=== PATIENT | male | born 1970 | race Caucasian/White ===

== ENCOUNTER 2016-10-05 09:15 | Inpatient (IN) ==
[2016-10-05] MEDS ORDERED: Ondansetron ODT 4 MG TAB.RAPDIS SL ONE (09:38)
--- NOTE | 2016-10-05 09:39 | Emergency Department Note ---
Disposition Clinical Impression: Chronic schizophrenia Fever Qualifiers: Fever type: unspecified Qualified Code(s): R50.9 - Fever, unspecified Leukocytosis, unspecified Qualifiers: Leukocytosis type: unspecified Qualified Code(s): D72.829 - Elevated white blood cell count, unspecified Disposition: Still a Patient Referrals: NO,PCP [Non-Partnered Physician] - Forms: ED Satisfaction Letter Time of Disposition: 11:24 Psych HPI - General Chief Complaint: ED Psychiatric Symptoms Stated Complaint: panic attack Time Seen by Provider: 10/05/16 09:21 Source: patient, EMS Mode of arrival: EMS Limitations: altered mental status Nursing Notes Reviewed: Yes Vital Signs Reviewed: Yes - History of Present Illness HPI Narrative: patient is brought to the ED via EMS from home in an agitated state. He has a history of schizophrenia and for the last 4 days has not been taking his medications as he has been unable to keep anything down. He is having rapid speech, flights of ideas, minimally cooperative at this time. His states he has not been recognizing her for the last few days off and on. He voiced suicidal ideation at home, but now denying. He is constantly spitting into the trash can, but then demanding ice chips , which his continues to provide even though we have requested he not be given anything by mouth. He states "if you don't give me ice chips I'll have a psychotic break on you". Attempts to discuss the reason behind NPO are not well received, and he is not willing to cooperate with these plans. Will proceed with psych work up. Pt complaint: altered mental status, anxiety If medical clearance, reason: psychiatric condition Onset (ago): day(s) (4) Duration: constant, changing over time, getting worse History of similar episodes: Yes Improves with: none Worsens with: none Alleged intoxication: No Associated Psychiatric Symptoms: suicidal ideation Associated symptoms: Reports: nausea, vomiting Traumatic symptoms: denies traumatic injury Treatments prior to arrival: none Self harm or harm to others: denies thoughts of harming self/others, denies having a plan - Related Data Previous Rx's Medication Instructions Recorded Lactobacillus [Culturelle] 1 each PO DAILY #10 cap.sprink 12/21/14 Potassium Chloride 20 meq PO BID #60 tab.er.prt 12/21/14 TraZODone 50 mg PO HS PRN #30 tablet 12/21/14 Ziprasidone [Geodon] 20 mg PO BID #60 capsule 12/21/14 metroNIDAZOLE [Flagyl] 500 mg PO TID #14 tablet 12/21/14 Allergies Allergy/AdvReac Type Severity Reaction Status Date / Time Penicillins Allergy Severe Difficulty Verified 12/17/14 08:00 Breathing All systems ED: reviewed and negative except as stated. Constitutional: Denies: fever, chills, weakness, weight change Eyes: Denies: eye pain, eye discharge, vision change ENT ED: Denies: ear pain, throat pain, dental pain, hearing loss, epistaxis, congestion, dysphagia Cardiovascular: Denies: chest pain, palpitations, dyspnea on exertion, edema, syncope Gastrointestinal: Reports: abdominal pain, nausea, vomiting Genitourinary: Denies: urgency, dysuria, frequency, hematuria Musculoskeletal: Denies: back pain, neck pain, arthralgia, myalgia Integumentary: Denies: rash, abrasion, lesions Neurological: Denies: headache, weakness, numbness, paresthesias, confusion, abnormal gait, vertigo Psychiatric: Denies: anxiety, depression, suicidal thoughts, homicidal thoughts , auditory hallucinations, visual hallucinations Past Medical History - Past Medical History Attestation: Yes The following information was validated with the patient. Source: patient, obtained from family, nursing notes reviewed Medical history: Reports: non-contributory Surgical history: Reports: non-contributory, other Psychiatric history: Reports: anxiety, bipolar, depression, schizophrenia - Social History Smoking Status: Never smoker Smokeless Tobacco Status: No Alcohol use: Reports: none Drug use: Reports: none, marijuana Physical Exam - General Limitations: altered mental status General appearance: anxious - Head Head exam: atraumatic, normocephalic, normal inspection - Eye Eye exam: Present: normal appearance, PERRL, EOMI - ENT ENT exam: normal exam, normal oropharynx, mucous membranes moist - Neck Neck exam: Present: normal inspection, full ROM, trachea midline - Chest Chest inspection: Present: normal inspection, symmetric chest wall rise - Respiratory Respiratory exam: Present: normal lung sounds bilaterally, wheezes (expiratory occasional wheezing ) - Cardiovascular Cardiovascular exam: Present: regular rate, normal rhythm, normal heart sounds - Abdominal Exam Abdominal exam: Present: soft, Non-Tender, normal bowel sounds. Absent: tenderness, distention, guarding, rebound, rigidity - Extremities Exam Extremities exam: Present: normal inspection, full ROM. Absent: tenderness, pedal edema - Back Exam Back exam: Present: normal inspection, full ROM. Absent: tenderness - Neurological Exam Neurological exam: Present: alert, oriented X3 - Psychiatric Psychiatric exam: Present: agitated, anxious, suicidal ideation - Skin Skin exam: Present: warm, dry, intact, normal color Course Vital Signs Temperature 98.6 F 10/05/16 09:17 Pulse Rate 102 10/05/16 09:17 Respiratory Rate 16 10/05/16 09:17 Blood Pressure 189/101 10/05/16 09:17 O2 Sat by Pulse Oximetry 93 10/05/16 09:17 Temperature 98.6 F 10/05/16 09:17 Pulse Rate 102 10/05/16 09:17 Respiratory Rate 16 10/05/16 09:17 Blood Pressure 189/101 10/05/16 09:17 O2 Sat by Pulse Oximetry 93 10/05/16 09:17 Oxygen Delivery Oxygen Delivery Room Air Psych - Lab Data Result diagrams: 10/05/16 10:00 10/05/16 10:00 Lab Results 10/05/16 10/05/16 10/05/16 Range/Units 09:52 10:00 10:00 WBC 30.1 H* (4.3-11.1) K/mcL RBC 5.78 H (4.19-5.50) M/mcL Hgb 17.0 H (12.9-16.9) g/dL Hct 48.0 (37.5-50.1) % MCV 83.0 (83.0-100.0) fL MCH 29.4 (28.0-33.3) pg MCHC 35.4 (31.6-35.5) g/dL RDW 14.1 (11.5-14.5) % Plt Count 420 H (140-400) K/mcL MPV 9.0 L (9.4-12.4) fL Immature Gran % 0.6 (0-4) % Seg Neutrophils % 87.2 % Lymphocytes % 6.0 % Monocytes % 6.0 % Eosinophils % 0.0 % Basophils % 0.2 % Neutrophils # 26.3 H (1.6-8.9) K/mcL Lymphocytes # 1.8 (0.6-4.6) K/mcL Monocytes # 1.8 H (0.0-1.3) K/mcL Eosinophils # 0.0 (0.0-0.6) K/mcL Basophils # 0.1 (0.0-0.2) K/mcL Platelet Estimate Increased H (Normal) Sodium 135 L (136-145) mEq/L Potassium 3.0 L (3.5-4.5) mEq/L Chloride 100 (98-109) mEq/L Carbon Dioxide 15 L (19-29) mEq/L BUN 22 (8-26) mg/dL Creatinine 1.47 H (0.72-1.25) mg/dL Est GFR ( Amer) > 60 (> 60) Est GFR (Non-Af Amer) 52 L (> 60) BUN/Creatinine Ratio 15 (6-26) Glucose 109 H (70-99) mg/dL Calculated Osmolality 284 (280-300) Calcium 9.9 (8.6-10.8) mg/dL Total Bilirubin 0.9 (0.2-1.2) mg/dL Direct Bilirubin 0.4 (0.0-0.5) mg/dL Indirect Bilirubin 0.5 (0.0-1.2) mg/dL AST 37 H (5-34) Units/L ALT 14 (0-55) Units/L Alkaline Phosphatase 67 (38-126) Units/L Serum Total Protein 8.4 H (6.0-8.3) g/dL Albumin 4.0 (3.5-5.0) g/dL Globulin 4.4 H (2.4-3.5) g/dL Albumin/Globulin Ratio 0.9 L (1.1-2.2) TSH 1.298 (0.350-4.840) mcIU/mL Urine Color Dark Yellow (Yellow) Urine Clarity Hazy (Clear) Urine pH 6.0 (5.0-8.0) pH Units Ur Specific [place] > 1.030 H (1.010-1.025) Urine Protein >=300 H (Neg-Trace) mg/dL Urine Glucose (UA) Normal (Normal) mg/dL Urine Ketones 80 H (Negative) mg/dL Urine Blood Large H (Negative) Urine Nitrite Negative (Negative) Urine Bilirubin Moderate H (Negative) Urine Urobilinogen Normal (Normal) mg/dL Ur Leukocyte Esterase Negative (Negative) Urine Microscopic RBC 5-15 H (0-3) per hpf Urine Microscopic WBC 5-15 H (0-3) per hpf Ur Squamous Epith Cells Many H (None-Few) per lpf Ur Transition Epith Cell Few (None-Few) per hpf Ur Renal Epithelial Cell Few (None-Few) per hpf Urine Bacteria Moderate H (None-Few) per hpf Hyaline Casts Few (None-Few) per lpf Granular Casts Few H (None Seen) per lpf Other Casts See Below A Urine Mucus Few (Few) Salicylates < 5.0 L (15-30) mg/dL Acetaminophen < 1.0 L (10-30) mcg/mL Ethyl Alcohol < 10 (0-10) mg/dL Psychiatric Medical Clearance - Medical Clearance Checklist Medical History: No Social History Section defined Current Vitals: Last Vital Signs Temp 98.6 F 10/05/16 09:17 Pulse 102 10/05/16 09:17 Resp 16 10/05/16 09:17 BP 189/101 10/05/16 09:17 Pulse Ox 93 10/05/16 09:17 Psychiatric Lab Panel: Drug Levels and Toxicity 10/05/16 10:00 Acetaminophen < 1.0 L Ethyl Alcohol < 10 Abnormal Labs: Abnormal lab results WBC 30.1 K/mcL (4.3-11.1) H* 10/05/16 10:00 RBC 5.78 M/mcL (4.19-5.50) H 10/05/16 10:00 Hgb 17.0 g/dL (12.9-16.9) H 10/05/16 10:00 Plt Count 420 K/mcL (140-400) H 10/05/16 10:00 MPV 9.0 fL (9.4-12.4) L 10/05/16 10:00 Neutrophils # 26.3 K/mcL (1.6-8.9) H 10/05/16 10:00 Monocytes # 1.8 K/mcL (0.0-1.3) H 10/05/16 10:00 Platelet Estimate Increased (Normal) H 10/05/16 10:00 Sodium 135 mEq/L (136-145) L 10/05/16 10:00 Potassium 3.0 mEq/L (3.5-4.5) L 10/05/16 10:00 Carbon Dioxide 15 mEq/L (19-29) L 10/05/16 10:00 Creatinine 1.47 mg/dL (0.72-1.25) H 10/05/16 10:00 Est GFR (Non-Af Amer) 52 (> 60) L 10/05/16 10:00 Glucose 109 mg/dL (70-99) H 10/05/16 10:00 AST 37 Units/L (5-34) H 10/05/16 10:00 Serum Total Protein 8.4 g/dL (6.0-8.3) H 10/05/16 10:00 Globulin 4.4 g/dL (2.4-3.5) H 10/05/16 10:00 Albumin/Globulin Ratio 0.9 (1.1-2.2) L 10/05/16 10:00 Ur Specific [place] > 1.030 (1.010-1.025) H 10/05/16 09:52 Urine Protein >=300 mg/dL (Neg-Trace) H 10/05/16 09:52 Urine Ketones 80 mg/dL (Negative) H 10/05/16 09:52 Urine Blood Large (Negative) H 10/05/16 09:52 Urine Bilirubin Moderate (Negative) H 10/05/16 09:52 Urine Microscopic RBC 5-15 per hpf (0-3) H 10/05/16 09:52 Urine Microscopic WBC 5-15 per hpf (0-3) H 10/05/16 09:52 Ur Squamous Epith Cells Many per lpf (None-Few) H 10/05/16 09:52 Urine Bacteria Moderate per hpf (None-Few) H 10/05/16 09:52 Granular Casts Few per lpf (None Seen) H 10/05/16 09:52 Other Casts See Below A 10/05/16 09:52 Salicylates < 5.0 mg/dL (15-30) L 10/05/16 10:00 Acetaminophen < 1.0 mcg/mL (10-30) L 10/05/16 10:00 Statement of Medical Clearance: I have evaluated the patient, reviewed diagnostic information, and certify that the patient's medical condition is sufficiently stable that transfer to the psychiatric unit does not pose a significant risk of deterioration. S.B.Jose - Tanya Situation: Demographics Background: Presenting Complaint, Relevant PMH, Meds, & Allergies Assessment: Vital Signs, Course and respsone to treatment, Exam Concerns, Patient/Family Expectation, Pertinant Lab Results, Outstanding Labs Recommendation: Recommendation based on pending studies, treatments, or consults [email or web address] Report Given to: MD Jose Juan. Tanya Repor Time: 11:18
[2016-10-05] MEDS ORDERED: Ziprasidone 20 MG CAPSULE PO SCH (09:45)
[2016-10-05 10:01] LABS: Bilirubin,Urine Moderate (Negative); Blood,Urine Large (Negative); Color,Urine Dark Yellow (Yellow); Glucose,Urine (UA) Normal (Normal); Ketones,Urine 80 mg/dL (Negative); Leukocyte Esterase,Urine Negative (Negative); Nitrite,Urine Negative (Negative); Protein,Urine >=300 mg/dL (Neg-Trace); Specific Gravity,Urine > 1.030 (1.010-1.025); Urobilinogen,Urine Normal (Normal)
[2016-10-05 10:02] LABS: Squamous Epithelial Cell,Urine Many per lpf (None-Few)
[2016-10-05 10:11] LABS: Clarity,Urine Hazy (Clear)
[2016-10-05 10:12] LABS: Basophils % 0.2 %; Immature Granulocytes % 0.6 % (0-4)
[2016-10-05 10:14] LABS: Basophils # 0.1 K/mcL (0.0-0.2); Lymphocytes # 1.8 K/mcL (0.6-4.6); Mean Corpuscular HGB Conc 35.4 g/dL (31.6-35.5); Mean Corpuscular Hemoglobin 29.4 pg (28.0-33.3); Monocytes # 1.8 K/mcL (0.0-1.3); Neutrophils # 26.3 K/mcL (1.6-8.9); Platelet Count 420 K/mcL (140-400); Red Blood Count 5.78 M/mcL (4.19-5.50); Red Cell Distribution Width 14.1 % (11.5-14.5); Segmented Neutrophils % 87.2 %
[2016-10-05] MEDS ORDERED: *HR* LORazepam 2 MG/ML VIAL IVP ONE (10:23)
[2016-10-05] MEDS ORDERED: Ondansetron 4 MG/2 ML VIAL IVP STA (10:23)
[2016-10-05] MEDS ORDERED: 0.9 % Sodium Chloride 1,000 ML IVC ONE ×3 (10:23→13:20)
[2016-10-05 10:27] LABS: Alanine Aminotransferase 14 Units/L (0-55); Albumin/Globulin Ratio 0.9 (1.1-2.2); Alkaline Phosphatase 67 Units/L (38-126); Aspartate Amino Transferase 37 Units/L (5-34); BUN/Creatinine Ratio 15 (6-26); Bilirubin,Direct 0.4 mg/dL (0.0-0.5); Bilirubin,Indirect 0.5 mg/dL (0.0-1.2); Bilirubin,Total 0.9 mg/dL (0.2-1.2); Blood Urea Nitrogen 22 mg/dL (8-26); Calcium 9.9 mg/dL (8.6-10.8); Carbon Dioxide 15 mEq/L (19-29); Chloride 100 mEq/L (98-109); Globulin 4.4 g/dL (2.4-3.5); Glucose 109 mg/dL (70-99); Osmolality,Calculated 284 (280-300); Sodium 135 mEq/L (136-145); Total Protein 8.4 g/dL (6.0-8.3); eGFR For African Americans > 60 (> 60); eGFR For Non-African Americans 52 (> 60)
[2016-10-05 10:30] LABS: Acetaminophen < 1.0 mcg/mL (10-30); Ethanol < 10 mg/dL (0-10); Salicylate < 5.0 mg/dL (15-30)
[2016-10-05 10:37] LABS: Granular Casts,Urine Few per lpf (None Seen); Mucus,Urine Few (Few)
[2016-10-05 10:38] LABS: Bacteria,Urine Moderate per hpf (None-Few); Hyaline Casts,Urine Few per lpf (None-Few)
[2016-10-05 10:39] LABS: Renal Epithelial Cells,Urine Few per hpf (None-Few); Transitional Epi Cells,Urine Few per hpf (None-Few)
[2016-10-05 10:40] LABS: Platelet Estimate Increased (Normal)
[2016-10-05 10:48] LABS: Thyroid Stimulating Hormone 1.298 mcIU/mL (0.350-4.840)
[2016-10-05] MEDS ORDERED: diazePAM 10 MG/2 ML SYRINGE IVP STA (10:50)
[2016-10-05] MEDS ORDERED: *HR* Promethazine 25 MG/ML VIAL IVP ONE (10:50)
--- NOTE | 2016-10-05 11:26 | Emergency Department Note ---
START Narrative - START START: The patient was checked out to me by the APC, I agree with her note. The patient has been somewhat agitated and feeling like harming others. He has had multiple episodes of diarrhea and has a history of C. difficile in the past. The patient "picks" his skin and has multiple sores on his body per his female director of promotions. He has had some diarrhea and felt feverish. He has been symptomatic for a few days. The patient's physical exam demonstrates multiple skin lesions in various states of healing. No crepitance of the skin or blackening. He is alert oriented and following commands and has no other specific complaints on my questioning. The patient's last tetanus shot was within 5 years. There is no evidence of nuchal rigidity, or logic examination is unremarkable, there is no history of trauma, no history of headache, I do not suspect meningismus. The patient is alert and shrink questions properly and following commands in the ED. Reports the patient had mentioned suicidality at home. The patient's female director of promotions augments the history. Impression: Sepsis Leukocytosis Diarrhea Abnormal urinalysis History of C. difficile colitis Multiple skin excoriations/cellulitis Homicidality Suicidality History of drug abuse Street of psychiatric disease Hypokalemia Renal insufficiency The patient has a white blood cell count of 30,000, he is hypokalemic, has had diarrhea, with a history of C. difficile colitis. He has multiple skin lesions in various states of healing, he meets sepsis criteria, he has no abnormal urinalysis as a potential source, diarrhea as a potential source, and skin lesions with cellulitis are also potential source for infection. The patient was given Flagyl for possible C. difficile. Vancomycin and Levaquin for UTI and skin lesions. Blood cultures were sent. Based on the patient's markedly elevated white count, meeting sepsis criteria, hypokalemia, skin lesions was likely cellulitis, diarrhea with suspicion for C. difficile colitis, and homicidality, I think the patient should be admitted to the hospital. I discussed the case with the hospitalist on-call who has accepted the patient to their care.
[2016-10-05] MEDS ORDERED: metroNIDAZOLE 500 MG TABLET PO ONE (11:42)
[2016-10-05] MEDS ORDERED: Vancomycin 1,000 MG in D5% in Water 250 ML IVPB ONE (11:43)
[2016-10-05] MEDS ORDERED: Levofloxacin 750 MG/150 ML 750 MG/150 ML BAG IVPB ONE (12:06)
[2016-10-05 12:37] LABS: C-Reactive Protein 32 mg/L (Less than 5)
[2016-10-05] MEDS ORDERED: traZODone 50 MG TABLET PO PRN (14:41)
[2016-10-05] MEDS ORDERED: Ondansetron 4 MG/2 ML VIAL IVP PRN (14:46)
[2016-10-05] MEDS ORDERED: Naloxone 0.4 MG/ML INJ IVP PRN (14:46)
[2016-10-05] MEDS ORDERED: Acetaminophen 325 MG TABLET PO PRN (14:46)
[2016-10-05] MEDS ORDERED: *HR* Morphine 2 MG/ML SYRINGE IVP PRN (14:46)
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
[2016-10-05] MEDS ORDERED: Vancomycin 1,500 MG in D5% in Water 250 ML IVPB SCH (15:00)
--- NOTE | 2016-10-05 17:36 | Electrocardiograph Report ---
[address] [address] Test Date: 2016-10-05 Pat Name: Dionte Maria Department: 104 Room: 2N14 Gender: M [employer] Attendant: AM : 1970 Requested By: Pablito Hernandez Order Number: [id number] Reading MD: Kat Phipps Measurements Intervals [place] Rate: 89 P: -85 FL: 109 QRS: -4 QRSD: 100 T: 26 QT: 392 QTc: 439 Interpretive Statements ECTOPIC ATRIAL RHYTHM ABNORMAL RHYTHM ECG Electronically Signed On 10-05-2016 17:34:30 EDT by Kat Phipps
[2016-10-05] MEDS: Pantoprazole 40 MG VIAL IVP SCH (18:11)
[2016-10-05] MEDS: ALPRAZolam 1 MG TABLET PO SCH (18:16)
[2016-10-05] MEDS: chlorproMAZINE 25 MG TABLET PO SCH (20:33)
[2016-10-05] MEDS: clonazePAM 1 MG TABLET PO SCH (20:33)
[2016-10-05] MEDS: Metoprolol 100 MG TABLET PO SCH (20:33)
[2016-10-05] MEDS: MetroNIDAZOLE 500 MG/100 ML 500 MG/100 ML BAG IVPB SCH (20:34)
[2016-10-05] MEDS: Divalproex (24 HR) 500 MG TABLET PO SCH ×2 (20:34→20:54)
[2016-10-06] MEDS: Vancomycin 1,500 MG in D5% in Water 250 ML IVPB SCH ×2 (02:10→14:52)
[2016-10-06] MEDS: MetroNIDAZOLE 500 MG/100 ML 500 MG/100 ML BAG IVPB SCH ×2 (04:37→12:38)
[2016-10-06] MEDS ORDERED: *HR* Enoxaparin 30 MG/0.3 ML SYRINGE SQ SCH (06:00)
[2016-10-06 06:27] LABS: Basophils % 0.1 %; Hematocrit 42.5 % (37.5-50.1); Immature Granulocytes % 0.5 % (0-4); Lymphocytes # 2.8 K/mcL (0.6-4.6); Lymphocytes % 13.7 %; Mean Corpuscular HGB Conc 33.9 g/dL (31.6-35.5); Mean Corpuscular Hemoglobin 28.9 pg (28.0-33.3); Mean Corpuscular Volume 85.2 fL (83.0-100.0); Mean Platelet Volume 9.3 fL (9.4-12.4); Monocytes # 1.7 K/mcL (0.0-1.3); Monocytes % 8.4 %; Neutrophils # 15.9 K/mcL (1.6-8.9); Platelet Count 290 K/mcL (140-400); Red Blood Count 4.99 M/mcL (4.19-5.50); Red Cell Distribution Width 13.9 % (11.5-14.5); Segmented Neutrophils % 77.3 %
[2016-10-06 06:32] LABS: BUN/Creatinine Ratio 15 (6-26); Blood Urea Nitrogen 17 mg/dL (8-26); Carbon Dioxide 24 mEq/L (19-29); Chloride 108 mEq/L (98-109); Glucose 85 mg/dL (70-99); Osmolality,Calculated 289 (280-300); Potassium 3.8 mEq/L (3.5-4.5); Sodium 139 mEq/L (136-145); eGFR For African Americans > 60 (> 60); eGFR For Non-African Americans > 60 (> 60)
[2016-10-06 06:35] LABS: Hemoglobin 14.4 g/dL (12.9-16.9)
[2016-10-06] MEDS: Divalproex (24 HR) 500 MG TABLET PO SCH ×3 (08:40→20:41)
[2016-10-06] MEDS: Metoprolol 100 MG TABLET PO SCH ×2 (08:40→20:42)
[2016-10-06] MEDS: ALPRAZolam 1 MG TABLET PO SCH ×3 (08:41→18:22)
[2016-10-06] MEDS: Pantoprazole 40 MG VIAL IVP SCH (08:41)
[2016-10-06] MEDS: Levofloxacin 750 MG/150 ML 750 MG/150 ML BAG IVPB SCH (08:42)
--- NOTE | 2016-10-06 15:29 | Internal Med Progress Note ---
Date of Encounter: 10/06/16 Time of Encounter: 10:35 - Assessment and plan (1) Sepsis Current Visit: Yes Status: Acute Assessment and plan: Leukocytosis improving. Patient is clinically doing better. No fever or chills reported overnight. Cultures have been negative. Likely from possible underlying urinary tract infection. Qualifiers: Sepsis type: sepsis due to unspecified organism Qualified Code(s): A41.9 - Sepsis, unspecified organism (2) Acute kidney injury Current Visit: No Status: Resolved Assessment and plan: This has now resolved. (3) Gastroenteritis Current Visit: Yes Status: Acute Assessment and plan: No episodes of diarrhea here. Resolving. (4) Mood disorder Current Visit: Yes Status: Acute Assessment and plan: Resume home medications. Slightly improved. (5) Schizophrenia Current Visit: Yes Status: Acute Assessment and plan: Consulted psychiatric for further evaluation. Resume home medications. Qualifiers: Schizophrenia type: unspecified Qualified Code(s): F20.9 - Schizophrenia, unspecified (6) UTI (urinary tract infection) Current Visit: Yes Status: Acute Assessment and plan: On IV antibiotics. We will de-escalate antibiotics as patient is clinically improving clinically. Await culture results. Qualifiers: Urinary tract infection type: acute cystitis Hematuria presence: with hematuria Qualified Code(s): N30.01 - Acute cystitis with hematuria - Subjective Interval history: Patient is less agitated and anxious today. Denies any new complaints today. Feels much better. Denies any dizziness. Still having flights of thoughts and pressured speech. Complains of having diarrhea and inability to keep any food down over the past week. - Constitutional Vitals: Temp Pulse Resp BP Pulse Ox 97.8 F 62 18 159/108 99 10/06/16 11:03 10/06/16 11:03 10/06/16 11:03 10/06/16 11:03 10/06/16 11:03 General appearance: Present: A&O X 3, no acute distress, answers questions appropriately - Neck Neck exam general surgery: Present: supple, trachea midline. Absent: lymphadenopathy - Respiratory Respiratory exam: Present: CTAB. Absent: accessory muscle use, rales, rhonchi, wheezes - Cardiovascular Cardiovascular exam: Present: RRR, +S1, +S2. Absent: diastolic murmur, gallop, rubs, systolic murmur - GI/Abdominal GI/Abdominal exam: Present: normal bowel sounds, soft, no peritoneal signs. Absent: distended, tenderness - Extremities Exam Extremities exam: Present: warm, radial pulses palpable and symetrical. Absent : calf tenderness, cyanotic, pedal edema Additional comments: Excoriations present on left upper extremity. No signs of inflammation or cellulitis. - Neurological Exam Neurological exam: Present: oriented X3, no focal deficits. Absent: facial droop, speech deficit - Psychiatric Psychiatric exam: Present: anxious Additional comments: Pressured speech and flight of thoughts and ideas - Skin Skin exam: Present: dry, intact Internal Medicine: Result - Labs CBC & Chem 7: 10/06/16 06:04 10/06/16 06:04 Labs: Short CBC 10/06/16 Range/Units 06:04 WBC 20.5 H (4.3-11.1) K/mcL Hgb 14.4 D (12.9-16.9) g/dL Hct 42.5 (37.5-50.1) % Plt Count 290 (140-400) K/mcL Neutrophils # 15.9 H (1.6-8.9) K/mcL BMP 10/06/16 06:04 Sodium 139 Potassium 3.8 Chloride 108 Carbon Dioxide 24 BUN 17 Creatinine 1.13 Glucose 85 Calcium 8.0 L D Consult Discharge Plan - Plan Referrals: Yennifer Lundy, SHRUTHI [Primary Care Provider] - 10/13/16 8:00 am - Attending Attestation This document has been at least partially created by [employer] recognition technology by Dr. Dao. Errors in grammar, wording or other phrases may exist. If errors are found after the documentation is signed, they will be addressed individually in the addendum section of this document when appropriate.
--- NOTE | 2016-10-06 16:25 | Consult Note ---
Date of Encounter: 10/06/16 Time of Encounter: 15:45 Assessment & Recommendation (1) Delirium due to multiple etiologies Current visit: Yes Status: Acute Assessment & Recommendation: Case was discussed with the referring physician Dr. Wynne. Urine tox screen was not done in the emergency room to evaluate the possible intoxication. I recommend a Depakote level to check. Medical stabilization of the patient's and resuming his medication and his follow-up with his psychiatrist. There are no acute psychiatric condition at this time that required hospitalization and patient can be discharged when medically stable. Thank you for consultation History of Present Illness Patient: new to practice Requesting Physician: Enzo Dao MD Reason for consult: Manic symptoms History of present illness: Mr. Maria is a 46 year old male admitted for treatment of sepsis gusto antritis acute kidney injury and psych consultation was requested to evaluate manic symptoms was in anxiety and flight of ideas. On the record that the patient has a history of bipolar disorder and schizophrenia and has been treated with medication under care of psychiatrists and continue to follow. Patient told me that he has not been taking any medication for the past week due to his gastrointestinal problem he was experiencing nausea and vomiting Cornette keep medication down and apparently his symptoms worsen over time. Patient is well aware of his medication and has been compliant as confirmed by his significant other was in the room and patient is compliant with appointments with his psychiatrist's on a regular basis. On interview he was cooperative and pleasant answer question appropriately. CC: Enzo Dao MD Past Med Surg Social Fam HX - Past Medical History Medical history: non-contributory, other - Past Surgical History Surgical History: non-contributory, other - Social History Smoking Status: Former smoker Smokeless Tobacco Status: No Alcohol use: none Drug use: none, marijuana - Family History Mother Family Member Ethnicity: Non- Living Status: Still Living Hx Family Cardiac Disorders: Yes Medications & Allergies TraZODone 50 mg PO HS PRN #30 tablet 12/21/14 [Rx] Alprazolam [Xanax] 2 mg PO TID 10/05/16 [History] Chlorpromazine HCl 50 mg PO HS 10/05/16 [History] Divalproex (24 HR) [Depakote ER (24 HR)] 500 mg PO TID 10/05/16 [History] Lurasidone HCl [Latuda] 60 mg PO DAILY 10/05/16 [History] Metoprolol [Lopressor] 100 mg PO BID 10/05/16 [History] Ondansetron [Zofran ODT] 8 mg SL BID PRN 10/05/16 [History] clonazePAM [Klonopin] 2 mg PO HS 10/05/16 [History] Allergies Penicillins Allergy (Severe, Verified 12/17/14 08:00) Difficulty Breathing Mental Status Exam Patient orientation: Yes Person, Yes Time, Yes Place Level of alertness: Alert Patient appearance: Appropriate, Unkempt, Obese Behavior: calm, cooperative, guarded Psychomotor activity: Increased Eye contact: Maintains Eye Contact Mood description: Euthymic/stable Affect description: congruent with mood, full range Speech pattern: Normal rate, Normal rhythm, Normal tone Speech volume: Normal Thought process: Linear, Goal Oriented Thought content: No Suicidal ideation, No Homicidal ideation, No Overt delusions Perceptual disturbances: No Auditory hallucinations, No Visual hallucinations Attention span: Capable of Focused Attention Memory description: Grossly Intact Patient reliability: Reliable Historian Intelligence estimate: Average Judgment: Limited Insight: Partial Results - Vital Signs Vital signs: Temp Pulse Resp BP Pulse Ox 98.1 F 54 16 157/116 98 10/06/16 15:22 10/06/16 15:22 10/06/16 15:22 10/06/16 15:22 10/06/16 15:22 - Labs Labs: Laboratory Last Values WBC 20.5 K/mcL (4.3-11.1) H 10/06/16 06:04 RBC 4.99 M/mcL (4.19-5.50) 10/06/16 06:04 Hgb 14.4 g/dL (12.9-16.9) D 10/06/16 06:04 Hct 42.5 % (37.5-50.1) 10/06/16 06:04 MCV 85.2 fL (83.0-100.0) 10/06/16 06:04 MCH 28.9 pg (28.0-33.3) 10/06/16 06:04 MCHC 33.9 g/dL (31.6-35.5) 10/06/16 06:04 RDW 13.9 % (11.5-14.5) 10/06/16 06:04 Plt Count 290 K/mcL (140-400) 10/06/16 06:04 MPV 9.3 fL (9.4-12.4) L 10/06/16 06:04 Immature Gran % 0.5 % (0-4) 10/06/16 06:04 Seg Neutrophils % 77.3 % 10/06/16 06:04 Lymphocytes % 13.7 % 10/06/16 06:04 Monocytes % 8.4 % 10/06/16 06:04 Eosinophils % 0.0 % 10/06/16 06:04 Basophils % 0.1 % 10/06/16 06:04 Neutrophils # 15.9 K/mcL (1.6-8.9) H 10/06/16 06:04 Lymphocytes # 2.8 K/mcL (0.6-4.6) 10/06/16 06:04 Monocytes # 1.7 K/mcL (0.0-1.3) H 10/06/16 06:04 Eosinophils # 0.0 K/mcL (0.0-0.6) 10/06/16 06:04 Basophils # 0.0 K/mcL (0.0-0.2) 10/06/16 06:04 Platelet Estimate Increased (Normal) H 10/05/16 10:00 Sodium 139 mEq/L (136-145) 10/06/16 06:04 Potassium 3.8 mEq/L (3.5-4.5) 10/06/16 06:04 Chloride 108 mEq/L (98-109) 10/06/16 06:04 Carbon Dioxide 24 mEq/L (19-29) 10/06/16 06:04 BUN 17 mg/dL (8-26) 10/06/16 06:04 Creatinine 1.13 mg/dL (0.72-1.25) 10/06/16 06:04 Est GFR ( Amer) > 60 (> 60) 10/06/16 06:04 Est GFR (Non-Af Amer) > 60 (> 60) 10/06/16 06:04 BUN/Creatinine Ratio 15 (6-26) 10/06/16 06:04 Glucose 85 mg/dL (70-99) 10/06/16 06:04 Calculated Osmolality 289 (280-300) 10/06/16 06:04 Lactic Acid 1.2 mmol/L (0.5-2.2) 10/05/16 14:36 Calcium 8.0 mg/dL (8.6-10.8) L D 10/06/16 06:04 Total Bilirubin 0.9 mg/dL (0.2-1.2) 10/05/16 10:00 Direct Bilirubin 0.4 mg/dL (0.0-0.5) 10/05/16 10:00 Indirect Bilirubin 0.5 mg/dL (0.0-1.2) 10/05/16 10:00 AST 37 Units/L (5-34) H 10/05/16 10:00 ALT 14 Units/L (0-55) 10/05/16 10:00 Alkaline Phosphatase 67 Units/L (38-126) 10/05/16 10:00 Troponin I 0.03 ng/mL (0-0.03) 10/05/16 10:00 C-Reactive Protein 32 mg/L (Less than 5) H 10/05/16 10:00 Serum Total Protein 8.4 g/dL (6.0-8.3) H 10/05/16 10:00 Albumin 4.0 g/dL (3.5-5.0) 10/05/16 10:00 Globulin 4.4 g/dL (2.4-3.5) H 10/05/16 10:00 Albumin/Globulin Ratio 0.9 (1.1-2.2) L 10/05/16 10:00 TSH 1.298 mcIU/mL (0.350-4.840) 10/05/16 10:00 Urine Color Dark Yellow (Yellow) 10/05/16 09:52 Urine Clarity Hazy (Clear) 10/05/16 09:52 Urine pH 6.0 pH Units (5.0-8.0) 10/05/16 09:52 Ur Specific [place] > 1.030 (1.010-1.025) H 10/05/16 09:52 Urine Protein >=300 mg/dL (Neg-Trace) H 10/05/16 09:52 Urine Glucose (UA) Normal mg/dL (Normal) 10/05/16 09:52 Urine Ketones 80 mg/dL (Negative) H 10/05/16 09:52 Urine Blood Large (Negative) H 10/05/16 09:52 Urine Nitrite Negative (Negative) 10/05/16 09:52 Urine Bilirubin Moderate (Negative) H 10/05/16 09:52 Urine Urobilinogen Normal mg/dL (Normal) 10/05/16 09:52 Ur Leukocyte Esterase Negative (Negative) 10/05/16 09:52 Urine Microscopic RBC 5-15 per hpf (0-3) H 10/05/16 09:52 Urine Microscopic WBC 5-15 per hpf (0-3) H 10/05/16 09:52 Ur Squamous Epith Cells Many per lpf (None-Few) H 10/05/16 09:52 Ur Transition Epith Cell Few per hpf (None-Few) 10/05/16 09:52 Ur Renal Epithelial Cell Few per hpf (None-Few) 10/05/16 09:52 Urine Bacteria Moderate per hpf (None-Few) H 10/05/16 09:52 Hyaline Casts Few per lpf (None-Few) 10/05/16 09:52 Granular Casts Few per lpf (None Seen) H 10/05/16 09:52 Other Casts See Below A 10/05/16 09:52 Urine Mucus Few (Few) 10/05/16 09:52 Salicylates < 5.0 mg/dL (15-30) L 10/05/16 10:00 Acetaminophen < 1.0 mcg/mL (10-30) L 10/05/16 10:00 Ethyl Alcohol < 10 mg/dL (0-10) 10/05/16 10:00 Consult Discharge Plan - Plan Referrals: Yennifer Lundy, SHRUTHI [Primary Care Provider] - 10/13/16 8:00 am
[2016-10-06] MEDS: chlorproMAZINE 25 MG TABLET PO SCH (20:41)
[2016-10-06] MEDS: Lactobacillus 1 EACH CAP.SPRINK PO SCH (20:42)
[2016-10-06] MEDS: clonazePAM 1 MG TABLET PO SCH (20:42)
[2016-10-06 23:21] LABS: Amphetamine Screen,Urine Negative ng/mL (Cutoff=1000); Barbiturate Screen,Urine Negative ng/mL (Cutoff=200); Benzodiazepines Screen,Urine Positive ng/mL (Cutoff=200); Cannabinoid Screen,Urine Negative ng/mL (Cutoff = 50); Cocaine Screen,Urine Negative ng/mL (Cutoff= 300); Opiate Screen,Urine Negative ng/mL (Cutoff=300); Phencyclidine Screen,Urine Negative ng/mL (Cutoff=25)
[2016-10-07 03:35] LABS: Basophils # 0.1 K/mcL (0.0-0.2); Basophils % 0.5 %; Eosinophils # 0.1 K/mcL (0.0-0.6); Hematocrit 37.8 % (37.5-50.1); Immature Granulocytes % 0.4 % (0-4); Lymphocytes % 30.1 %; Mean Corpuscular HGB Conc 34.4 g/dL (31.6-35.5); Mean Corpuscular Hemoglobin 29.1 pg (28.0-33.3); Mean Corpuscular Volume 84.6 fL (83.0-100.0); Mean Platelet Volume 9.2 fL (9.4-12.4); Monocytes # 0.9 K/mcL (0.0-1.3); Monocytes % 8.5 %; Platelet Count 247 K/mcL (140-400); Red Blood Count 4.47 M/mcL (4.19-5.50); Red Cell Distribution Width 13.6 % (11.5-14.5); Segmented Neutrophils % 59.5 %
[2016-10-07] MEDS ORDERED: *HR* Enoxaparin 40 MG/0.4 ML SYRINGE SQ SCH (06:00)
[2016-10-07 08:32] VITALS: BP 147/119
[2016-10-07] MEDS: Lactobacillus 1 EACH CAP.SPRINK PO SCH (08:48)
[2016-10-07] MEDS: Levofloxacin 750 MG/150 ML 750 MG/150 ML BAG IVPB SCH (08:49)
[2016-10-07] MEDS: ALPRAZolam 1 MG TABLET PO SCH (08:53)
[2016-10-07] MEDS: Metoprolol 100 MG TABLET PO SCH (08:53)
[2016-10-07] MEDS: Divalproex (24 HR) 500 MG TABLET PO SCH (08:53)
--- NOTE | 2016-10-07 09:45 | Discharge Summary ---
Date of Encounter: 10/07/16 Time of Encounter: 09:42 - Discharge Diagnosis (1) Sepsis Priority: Primary Status: Acute Qualifiers: Sepsis type: sepsis due to unspecified organism Qualified Code(s): A41.9 - Sepsis, unspecified organism (2) Acute kidney injury Priority: Secondary Status: Resolved (3) Gastroenteritis Priority: Secondary Status: Acute (4) Mood disorder Priority: Secondary Status: Acute (5) Schizophrenia Priority: Secondary Status: Acute Qualifiers: Schizophrenia type: unspecified Qualified Code(s): F20.9 - Schizophrenia, unspecified (6) UTI (urinary tract infection) Priority: Secondary Status: Acute Qualifiers: Urinary tract infection type: acute cystitis Hematuria presence: with hematuria Qualified Code(s): N30.01 - Acute cystitis with hematuria (7) Hypertension Priority: Secondary Status: Acute Qualifiers: Hypertension type: essential hypertension Qualified Code(s): I10 - Essential (primary) hypertension - Discharge Medications Prescriptions: amLODIPine [Norvasc] 5 mg PO DAILY #30 tablet Lactobacillus [Culturelle] 1 each PO BID #20 cap.sprink levoFLOXacin [Levofloxacin] 750 mg PO DAILY #10 tablet Home Medications: TraZODone 50 mg PO HS PRN #30 tablet 12/21/14 [Rx] Alprazolam [Xanax] 2 mg PO TID 10/05/16 [History] Chlorpromazine HCl 50 mg PO HS 10/05/16 [History] Divalproex (24 HR) [Depakote ER (24 HR)] 500 mg PO TID 10/05/16 [History] Lurasidone HCl [Latuda] 60 mg PO DAILY 10/05/16 [History] Metoprolol [Lopressor] 100 mg PO BID 10/05/16 [History] Ondansetron [Zofran ODT] 8 mg SL BID PRN 10/05/16 [History] clonazePAM [Klonopin] 2 mg PO HS 10/05/16 [History] Lactobacillus [Culturelle] 1 each PO BID #20 cap.sprink 10/07/16 [Rx] amLODIPine [Norvasc] 5 mg PO DAILY #30 tablet 10/07/16 [Rx] levoFLOXacin [Levofloxacin] 750 mg PO DAILY #10 tablet 10/07/16 [Rx] Allergies/Adverse Reactions: Allergies Penicillins Allergy (Severe, Verified 12/17/14 08:00) Difficulty Breathing Date of admission: 10/05/16 16:03 Primary care physician: Yennifer Lundy CNP Consults: 10/06/16 13:50 Consult to Psychiatry [CONS] Routine Consulting Provider: Danyel Alcaraz Reason for Consult: Anxiety, flight of thoughts Call Completed: Yes Discharging clinician: Enzo Dao Anticipated date of discharge: 10/07/16 - Patient Status Disposition: Home, Self-Care Condition: Good Functional capacity at discharge: independent ambulation Overall status at discharge: patient is back to baseline - Discharge Instructions Instructions: Urinary Tract Infection in Men (DC), Sepsis (DC), Chronic Hypertension (DC) Follow Up With: Yennifer Lundy CNP [Primary Care Provider] - 10/13/16 8:00 am - Diet and Activity Activity: increase activity as tolerated Diet: low fat, low cholesterol, low salt diet Hospital course: Mr. Maria is a 46 year old male Patient who was admitted here with sepsis related to acute urinary tract infection and gastroenteritis which is likely viral in origin. He was treated with IV fluids and IV antibiotics with improvement in his symptoms. His leukocytosis has now resolved. His cultures have so far been negative. He stable to be discharged home on short course of oral antibiotics to complete treatment course. Patient also has a history of schizophrenia and mood disorder and had not been taking his medications due to his gastroenteritis. As such he was very agitated and anxious when he first presented to the ER. He was placed back on his usual medications and with that his symptoms have improved. He was also evaluated by psychiatry and recommended outpatient follow-up at this time without any need for inpatient admission. Currently the patient feels much better and stable to be discharged home. He is on medications which can prolong his QT interval while he is taking levofloxacin. However, his QT interval here has been at 390. For now he can continue taking his medications while he completes levofloxacin course. He also had acute kidney injury on presentation and this has resolved now. Patient's blood pressure has been uncontrolled. She takes metoprolol 100 mg twice daily. I am placing him on amlodipine in addition to this. He can follow up with his primary care provider for further management. - Time Spent with Patient Total time spent providing and/or coordinating discharge services: Less than 30 minutes (25 min) - Constitutional Vitals: Temp Pulse Resp BP Pulse Ox 98.6 F 70 16 147/119 96 10/07/16 08:28 10/07/16 08:28 10/07/16 08:28 10/07/16 08:28 10/07/16 03:31 General appearance: Present: A&O X 3, no acute distress, answers questions appropriately - Respiratory Respiratory exam: Present: CTAB. Absent: accessory muscle use, rales, rhonchi, wheezes - Cardiovascular Cardiovascular exam: Present: RRR, +S1, +S2. Absent: diastolic murmur, gallop, rubs, systolic murmur - GI/Abdominal GI/Abdominal exam: Present: normal bowel sounds, soft, no peritoneal signs. Absent: distended, tenderness - Attending Attestation This document has been at least partially created by [employer] recognition technology by Dr. Dao. Errors in grammar, wording or other phrases may exist. If errors are found after the documentation is signed, they will be addressed individually in the addendum section of this document when appropriate.
[2016-10-07] MEDS ORDERED: Aminoglycoside Consult 1 EACH MC ONE (11:42)
[2016-10-09 23:26] LABS: Valproate Free <7 ug/mL (7-23); Valproate Total 27 ug/mL (50-125)
== END 2016-10-07 11:43 | disposition home or self-care (01) | DRG 720 ==
LOC: 2NNU 09:15 → EMEROO 09:15 → 2NNU 16:45
PROVIDERS: ADMIT Internal Medicine; ATTEND Internal Medicine

== ENCOUNTER 2019-01-22 13:26 | Observation (INO) ==
[2019-01-22] MEDS ORDERED: Nitroglycerin 0.4 MG TAB.SUBL SL PRN (13:43)
[2019-01-22] MEDS ORDERED: Aspirin 81 MG TAB.CHEW PO ONE (13:43)
--- NOTE | 2019-01-22 13:43 | Emergency Department Note ---
Disposition Clinical Impression: Chest pain Qualifiers: Chest pain type: unspecified Qualified Code(s): R07.9 - Chest pain, unspecified Disposition: Admitted As Inpatient Condition: Good Referrals: Yennifer Lundy CNP [Primary Care Provider] - Forms: ED Satisfaction Letter Time of Disposition: 15:56 Chest Pain HPI - General Chief Complaint: ED Chest Pain Stated Complaint: chest pain Time Seen by Provider: 01/22/19 13:43 Source: patient Mode of arrival: ambulatory Limitations: no limitations Vital Signs Reviewed: Yes Nursing Notes Reviewed: Yes - History of Present Illness HPI Narrative: Male patient presenting tumor started complaining of a five-day history of a heaviness in his chest. Does report that is hard to take a deep breath. States that today he went to the pharmacy and got his blood pressure checked and was noted to be hypertensive. He states that he also then developed some sharp pain to the left side of his chest that radiated to his shoulder. States that this was negative for him. Was seen at an outside facility several days ago for the heaviness on his chest. Had a negative workup. Concern for possible sleep apnea as the family states that he does stop breathing while he is asleep. He denies any cough or congestion initially but then does report that he has had some nasal discharge. He denies any history of DVT or PE for him but he does have a family history of this. He is not currently a smoker but has been a smoker in the past. Does have a family history of cardiac disease as well. He does report a history of hypertension states he has been taking his medication. Also reports a history of schizophrenia. States that he has had a cardiac workup before with the stress test but was unable to continue the stress test as it was an exercise test. Was told that he will may need a chemical stress test but has not had that performed. No history of NH or stents placed. - Related Data Home Medications Medication Instructions Recorded Confirmed Alprazolam [Xanax] 2 mg PO TID 10/05/16 10/05/16 Chlorpromazine HCl 50 mg PO HS 10/05/16 10/05/16 Divalproex (24 HR) [Depakote ER 500 mg PO TID 10/05/16 10/05/16 (24 HR)] Lurasidone HCl [Latuda] 60 mg PO DAILY 10/05/16 10/05/16 Metoprolol [Lopressor] 100 mg PO BID 10/05/16 10/05/16 Ondansetron [Zofran ODT] 8 mg SL BID PRN 10/05/16 10/05/16 clonazePAM [Klonopin] 2 mg PO HS 10/05/16 10/05/16 Previous Rx's Medication Instructions Recorded TraZODone 50 mg PO HS PRN #30 tablet 12/21/14 Lactobacillus [Culturelle] 1 each PO BID #20 cap.sprink 10/07/16 amLODIPine [Norvasc] 5 mg PO DAILY #30 tablet 10/07/16 levoFLOXacin [Levaquin] 750 mg PO DAILY #10 tablet 10/07/16 Allergies Allergy/AdvReac Type Severity Reaction Status Date / Time Penicillins Allergy Severe Difficulty Verified 12/17/14 08:00 Breathing All systems ED: reviewed and negative except as stated. Review of Systems: As Per HPI Constitutional: Denies: fever, chills ENT ED: Reports: congestion Cardiovascular: Reports: chest pain (Heaviness in the center of his chest. Feels like someone's pressing down. Also complaining of a sharp pain to the left side it radiates under his armpit.). Denies: dyspnea on exertion Respiratory: Reports: other (Heart a take a deep breath secondary to the heaviness in his chest.). Denies: cough, dyspnea Gastrointestinal: Denies: abdominal pain, nausea, vomiting, diarrhea Genitourinary: Denies: urgency Chest Pain PMH - Past Medical History Medical history: Reports: non-contributory, other Surgical history: Reports: non-contributory, other Psychiatric history: Reports: anxiety, bipolar, depression, schizophrenia - Social History Smoking Status: Former smoker Alcohol use: Reports: none Drug use: Reports: none, marijuana Physical Exam - General Limitations: no limitations General appearance: alert, in no apparent distress - Head Head exam: atraumatic, normocephalic, normal inspection - Eye Eye exam: Present: normal appearance, PERRL, EOMI - ENT ENT exam: normal exam, normal oropharynx, mucous membranes moist - Neck Neck exam: Present: normal inspection, full ROM, trachea midline - Chest Chest inspection: Present: normal inspection, symmetric chest wall rise - Respiratory Respiratory exam: Present: normal lung sounds bilaterally. Absent: respiratory distress, accessory muscle use - Cardiovascular Cardiovascular exam: Present: regular rate, normal rhythm, normal heart sounds - Abdominal Exam Abdominal exam: Present: soft, Non-Tender. Absent: tenderness, distention, guarding, rebound, rigidity, organomegaly, Ingram's sign, Rovsing's sign, tenderness at McBurney's Point - Extremities Exam Extremities exam: Present: normal inspection, full ROM, normal capillary refill. Absent: tenderness, pedal edema - Back Exam Back exam: Present: normal inspection, full ROM. Absent: tenderness - Neurological Exam Neurological exam: Present: alert, oriented X3 - Psychiatric Psychiatric exam: Present: normal affect, normal mood - Skin Skin exam: Present: warm, dry, intact, normal color. Absent: rash, cyanosis, diaphoresis Course Course Narrative: Patient otherwise appears well. Does complain of a pressure sensation to the center of his chest. Reports a sharp pain to the left side of his chest that radiates to his left shoulder. No associated nausea vomiting or diaphoresis. Does have associated shortness of breath he states it feels like it is hard to take a deep breath. D-dimer is negative. Troponin is negative. EKG without concerns of acute ischemia. Patient was a previous smoker. Family history of cardiac disease. Low heart score however this is the patient's second visit for this ongoing pain and the pain did change about an hour prior to presentation here.. We will admit patient to the hospital for further cardiac evaluation. - Consultations Consultation #1: Dr Webster accepted Pt in stable condition. Time: 15:57 Vital Signs Temperature 97.9 F 01/22/19 13:32 Pulse Rate 107 01/22/19 13:32 Respiratory Rate 18 01/22/19 13:32 Blood Pressure 169/124 01/22/19 13:32 O2 Sat by Pulse Oximetry 96 01/22/19 13:32 Temperature 97.9 F 01/22/19 14:02 Pulse Rate 97 01/22/19 15:20 Respiratory Rate 18 01/22/19 15:20 Blood Pressure 144/95 01/22/19 15:20 O2 Sat by Pulse Oximetry 95 01/22/19 15:20 Oxygen Delivery Oxygen Delivery Room Air Chest Pain - Medical Records Medical records reviewed: Yes I reviewed the patient's medical records. - Lab Data Lab results reviewed: Yes I reviewed the patient's lab results. Result diagrams: 01/22/19 13:53 01/22/19 13:52 Lab Results 01/22/19 01/22/19 01/22/19 Range/Units 13:52 13:52 13:53 WBC 11.7 H (4.3-11.1) K/mcL RBC 4.40 (4.19-5.50) M/mcL Hgb 12.7 L (12.9-16.9) g/dL Hct 38.5 (37.5-50.1) % MCV 87.5 (83.0-100.0) fL MCH 28.9 (28.0-33.3) pg MCHC 33.0 (31.6-35.5) g/dL RDW 13.5 (11.5-14.5) % Plt Count 313 (140-400) K/mcL MPV 9.1 L (9.4-12.4) fL Immature Gran % 0.4 (0-4) % Seg Neutrophils % 65.6 % Lymphocytes % 19.3 % Monocytes % 9.0 % Eosinophils % 5.3 % Basophils % 0.4 % Neutrophils # 7.6 (1.6-8.9) K/mcL Lymphocytes # 2.3 (0.6-4.6) K/mcL Monocytes # 1.1 (0.0-1.3) K/mcL Eosinophils # 0.6 (0.0-0.6) K/mcL Basophils # 0.1 (0.0-0.2) K/mcL D-Dimer 475 (0-500) ng/mLFEU Sodium 139 (136-145) mEq/L Potassium 3.0 L (3.5-5.1) mEq/L Chloride 104 (98-107) mEq/L Carbon Dioxide 26 (23-29) mEq/L BUN 11 (6-20) mg/dL Creatinine 0.87 (0.70-1.30) mg/dL Est GFR ( Amer) > 60 (> 60) Est GFR (Non-Af Amer) > 60 (> 60) BUN/Creatinine Ratio 13 (6-26) Glucose 147 H (70-105) mg/dL Calculated Osmolality 290 (280-300) Calcium 8.6 (8.6-10.3) mg/dL Troponin I < 0.03 (< 0.04) ng/mL Valproic Acid < 4 L (50-100) mcg/mL - Radiology Data Radiology results reviewed: Yes I reviewed the patient's radiology results. Chest X-Ray 01/22/19 13:44 IMPRESSION: No acute process. D/ / Nils Bailey MD / Nils Bailey MD Interpreting Provider: Nils Bailey MD - EKG Data EKG attestation: Yes I reviewed and interpreted this EKG. EKG results narrative: Normal sinus rhythm at a rate of 103. QRS duration is 99. QT is 368. QTC is 428. [place] interval is 151. No signs of acute ischemia. Good R-wave progression. No significant change from previous EKG dated 01/18/2019. Heart Score - Score History: Slightly Suspicious EKG: Non Specific repolarisation Disturbance Age: 45-65 Risk Factors: 1-2 risk factors Troponin: Less than normal limit HEART Score Total: 3 Attestation Statement - Attestation Attestation: I reviewed the residents documentation and agree with the residents assessment and plan of care. I have personally had face to face time with the patient. (Brief History, Brief Exam, and MDM) I personally supervised and was present for the mcneil/critical portions of the following procedures completed by the resident: (add procedures performed here). [id number] time provided Patient rest, plenty of chest discomfort. He does not appear in any acute distress on exam. I attest to supervising the resident physician's interpretation of the ECG. Triage note and vitals reviewed by me. Patient evaluated in conjunction with the resident physician Dr. Roberson
[2019-01-22 14:43] LABS: BUN/Creatinine Ratio 13 (6-26); Blood Urea Nitrogen 11 mg/dL (6-20); Calcium 8.6 mg/dL (8.6-10.3); Carbon Dioxide 26 mEq/L (23-29); Chloride 104 mEq/L (98-107); Glucose 147 mg/dL (70-105); Osmolality,Calculated 290 (280-300); Sodium 139 mEq/L (136-145); Troponin I < 0.03 ng/mL (< 0.04); Valproate < 4 mcg/mL (50-100); eGFR For African Americans > 60 (> 60); eGFR For Non-African Americans > 60 (> 60)
[2019-01-22 14:54] LABS: Basophils # 0.1 K/mcL (0.0-0.2); Basophils % 0.4 %; Eosinophils # 0.6 K/mcL (0.0-0.6); Eosinophils % 5.3 %; Hematocrit 38.5 % (37.5-50.1); Hemoglobin 12.7 g/dL (12.9-16.9); Immature Granulocytes % 0.4 % (0-4); Lymphocytes # 2.3 K/mcL (0.6-4.6); Lymphocytes % 19.3 %; Mean Corpuscular Hemoglobin 28.9 pg (28.0-33.3); Mean Corpuscular Volume 87.5 fL (83.0-100.0); Mean Platelet Volume 9.1 fL (9.4-12.4); Monocytes # 1.1 K/mcL (0.0-1.3); Neutrophils # 7.6 K/mcL (1.6-8.9); Platelet Count 313 K/mcL (140-400); Red Cell Distribution Width 13.5 % (11.5-14.5); Segmented Neutrophils % 65.6 %; White Blood Count 11.7 K/mcL (4.3-11.1)
--- NOTE | 2019-01-22 16:00 | Internal Med History&Physical ---
Date of Encounter: 01/22/19 Time of Encounter: 15:58 Internal Medicine - H&P: HPI History of present illness: Mr. Maria is a 49 year old male with history of hypertension, obesity, schizophrenia presented to ED for a four day history of substernal chest pressure. Described as dull as well, with radiation to left shoulder on occasions that were sharp sensations, constant that has not subsided since it's original onset. No known alleviating or exacerbating factors. He was supposed to have a stress test scheduled as outpatient but came in since symptoms worsening. He finds some difficulty with breathing due to pressure, and complains of palpitations, nausea, chills, polyphagia, polyuria, muscle cramps. He denies diaphoresis, numbness/tingling, fevers, abdominal pain, diarrhea, headache, blurry vision. Reports family history significant for CAD, and father of [place]. In the ED an EKG done showed no acute ST/T wave changes. Initial troponin negative, D-dimer negative. A chest x-ray showed no acute process. His potassium was low at 3.0 and glucose on BMP was elevated at 147. He was given ASA and nitro without alleviation in symptoms. Past Med Surg Social Fam HX - Past Medical History Medical history: non-contributory, other Psychiatric history: anxiety, bipolar, depression, schizophrenia - Past Surgical History Surgical History: non-contributory, other Additional surgical history: hernia surgery - Social History Smoking Status: Former smoker Smokeless Tobacco Status: No Alcohol use: none Drug use: none, marijuana - Family History Mother Family Member Ethnicity: Non- Living Status: Still Living Hx Family Cardiac Disorders: Yes Internal Medicine - H&P: Meds TraZODone 50 mg PO HS PRN #30 tablet 12/21/14 [Rx] Alprazolam [Xanax] 2 mg PO TID 10/05/16 [History] Chlorpromazine HCl 50 mg PO HS 10/05/16 [History] Divalproex (24 HR) [Depakote ER (24 HR)] 500 mg PO TID 10/05/16 [History] Lurasidone HCl [Latuda] 60 mg PO DAILY 10/05/16 [History] Metoprolol [Lopressor] 100 mg PO BID 10/05/16 [History] Ondansetron [Zofran ODT] 8 mg SL BID PRN 10/05/16 [History] clonazePAM [Klonopin] 2 mg PO HS 10/05/16 [History] Lactobacillus [Culturelle] 1 each PO BID #20 cap.sprink 10/07/16 [Rx] amLODIPine [Norvasc] 5 mg PO DAILY #30 tablet 10/07/16 [Rx] levoFLOXacin [Levaquin] 750 mg PO DAILY #10 tablet 10/07/16 [Rx] Allergy/AdvReac Type Severity Reaction Status Date / Time Penicillins Allergy Severe Difficulty Verified 12/17/14 08:00 Breathing All Systems PM: A 10-system review of systems was performed and is negative for pertinent findings except as documented above in the HPI. - Constitutional Vitals: Temp Pulse Resp BP Pulse Ox 97.9 F 97 18 144/95 95 01/22/19 14:02 01/22/19 15:20 01/22/19 15:20 01/22/19 15:20 01/22/19 15:20 General appearance: Present: A&O X 3, pleasant, no acute distress, answers questions appropriately Exam: Pressured speech. - Head Head exam: Present: atraumatic, normocephalic - Eye Eye exam: Present: PERRL, conjuntiva pink, sclera anicteric Pupils: Present: PERRL - Neck Neck exam general surgery: Present: supple, trachea midline. Absent: lymphadenopathy - Respiratory Respiratory exam: Present: CTAB. Absent: accessory muscle use, rales, rhonchi, wheezes - Cardiovascular Cardiovascular exam: Present: RRR, +S1, +S2. Absent: diastolic murmur, gallop, rubs, systolic murmur - GI/Abdominal GI/Abdominal exam: Present: normal bowel sounds, soft, no peritoneal signs. Absent: distended, tenderness - Extremities Exam Extremities exam: Present: warm, radial pulses palpable and symmetrical. Absent: calf tenderness, cyanotic, pedal edema - Neurological Exam Neurological exam: Present: CN II-XII intact, oriented X3, no focal deficits. Absent: pronater drift, facial droop, speech deficit - Psychiatric Psychiatric exam: Present: normal mood - Skin Skin exam: Present: dry, intact Internal Med - H&P Results - Labs CBC & Chem 7: 01/22/19 13:53 01/22/19 13:52 Labs: Short CBC 01/22/19 Range/Units 13:53 WBC 11.7 H (4.3-11.1) K/mcL Hgb 12.7 L (12.9-16.9) g/dL Hct 38.5 (37.5-50.1) % Plt Count 313 (140-400) K/mcL Neutrophils # 7.6 (1.6-8.9) K/mcL BMP 01/22/19 13:52 Sodium 139 Potassium 3.0 L Chloride 104 Carbon Dioxide 26 BUN 11 Creatinine 0.87 Glucose 147 H Calcium 8.6 Cardiac Enzymes 01/22/19 Range/Units 13:52 Troponin I < 0.03 (< 0.04) ng/mL - Impressions ITS Impressions Chest X-Ray 01/22/19 13:44 IMPRESSION: No acute process. D/ / Nils Bailey MD / Nils Bailey MD Interpreting Provider: Nils Bailey MD - Assessment and Plan (1) Chest pain Current Visit: Yes Status: Acute Assessment and plan: Has some descriptions concerning for ACS. D-dimer negative less likely PE. Other etiologies include GERD, musculoskelatal, other. - Cycle troponin - Echocardiogram - Nuclear stress test Qualifiers: Chest pain type: unspecified Qualified Code(s): R07.9 - Chest pain, unspecified (2) Hypertension Current Visit: No Status: Acute Assessment and plan: Resume home medications once med rec completed. Add Labetolol IV prn. Qualifiers: Hypertension type: essential hypertension Qualified Code(s): I10 - Essential (primary) hypertension (3) Hypokalemia Current Visit: No Status: Acute Assessment and plan: Likely causing patient muscle cramps. Check magnesium Replace with Kcl now, recheck in AM. (4) Mood disorder Current Visit: No Status: Acute Assessment and plan: No acute issues, resume home medications. (5) Schizophrenia Current Visit: No Status: Acute Assessment and plan: Resume home medications. Qualifiers: Schizophrenia type: unspecified Qualified Code(s): F20.9 - Schizophrenia, unspecified (6) Hyperglycemia Current Visit: Yes Status: Acute Assessment and plan: Patient has symptoms concerning for diabetes along with elevated glucose. Will check A1C during next blood draw. (7) DVT prophylaxis Current Visit: Yes Status: Acute Assessment and plan: SQ Heparin - Time Spent With Patient Total time spent is greater than 50% in coordination of care (as documented) at patient's floor/unit and/or counseling patient:
--- NOTE | 2019-01-22 16:22 | Electrocardiograph Report ---
[place] [id number] Test Date: 2019-01-22 Pat Name: Dionte Maria Department: 104 Room: 3B Gender: M Test Data Developer: Ekp : 1970 Requested By: Deepika Roberson Order Number: [id number] Reading MD: Juan Carlos Adams Measurements Intervals [place] Rate: 103 P: 14 OK: 151 QRS: -8 QRSD: 99 T: 16 QT: 368 QTc: 428 Interpretive Statements SINUS TACHYCARDIA MINIMAL VOLTAGE CRITERIA FOR LVH, CONSIDER NORMAL VARIANT NONSPECIFIC T-WAVE ABNORMALITY ABNORMAL RHYTHM ECG Electronically Signed On 01-22-2019 16:20:52 EDT by Juan Carlos Adams
[2019-01-22] MEDS ORDERED: Naloxone 0.4 MG/ML INJ IVP PRN (16:25)
[2019-01-22] MEDS ORDERED: *HR* Labetalol 20 MG/4 ML SYRINGE IVP PRN (16:32)
[2019-01-22] MEDS ORDERED: *HR* LORazepam 2 MG/ML VIAL IVP ONE (18:01)
[2019-01-22] MEDS: *HR* Heparin 5,000 UNIT/ML VIAL SQ SCH (18:55)
[2019-01-22] MEDS: ALPRAZolam 1 MG TABLET PO SCH (20:08)
[2019-01-22 20:36] LABS: Chol/HDL Ratio 4.5 (0-4.9); Cholesterol 174 mg/dL (< 200); HDL Cholesterol 39 mg/dL (40-59); LDL Cholesterol,Calculated 109 mg/dL (0-99); Magnesium 1.6 mg/dL (1.6-2.6); Triglycerides 130 mg/dL (< 150)
[2019-01-22 20:37] LABS: Troponin I < 0.03 ng/mL (< 0.04)
[2019-01-22 20:44] LABS: Estimated Average Glucose 123 mg/dl
[2019-01-22] MEDS ORDERED: OXcarbazepine 150 MG TABLET PO SCH (21:00)
[2019-01-22] MEDS ORDERED: Perflutren Lipid Microsphere 1.3 ML in 0.9 % Sodium Chloride 8.7 ML IVP ONE (22:28)
[2019-01-22] MEDS: clonazePAM 1 MG TABLET PO ONE (22:30)
[2019-01-22] MEDS: OXcarbazepine 150 MG TABLET PO SCH (22:31)
[2019-01-23 05:41] LABS: BUN/Creatinine Ratio 13 (6-26); Blood Urea Nitrogen 12 mg/dL (6-20); Calcium 8.1 mg/dL (8.6-10.3); Carbon Dioxide 26 mEq/L (23-29); Chloride 107 mEq/L (98-107); Glucose 95 mg/dL (70-105); Osmolality,Calculated 292 (280-300); Potassium 3.7 mEq/L (3.5-5.1); Sodium 141 mEq/L (136-145); eGFR For African Americans > 60 (> 60); eGFR For Non-African Americans > 60 (> 60)
[2019-01-23] MEDS: *HR* Heparin 5,000 UNIT/ML VIAL SQ SCH ×2 (05:51→17:18)
[2019-01-23] MEDS: ALPRAZolam 1 MG TABLET PO SCH ×4 (05:51→20:20)
[2019-01-23] MEDS ORDERED: Regadenoson 0.4 MG/5 ML SYRINGE IVP ONE (06:43)
--- NOTE | 2019-01-23 10:01 | Internal Med Progress Note ---
Hospitalist Progress Note - Encounter Date of Encounter: 01/23/19 Time of Encounter: 09:59 - Subjective Interval History: Mr. Maria is a 49 year old male with history of hypertension, obesity, schizophrenia presented to ED for a four day history of substernal chest pressure. Described as dull as well, with radiation to left shoulder on occasions that were sharp sensations, constant that has not subsided since it's original onset. No known alleviating or exacerbating factors. He was supposed to have a stress test scheduled as outpatient but came in since symptoms worsening. He finds some difficulty with breathing due to pressure, and complains of palpitations, nausea, chills, polyphagia, polyuria, muscle cramps. He denies diaphoresis, numbness/tingling, fevers, abdominal pain, diarrhea, headache, blurry vision. Reports family history significant for CAD, and father of [place]. In the ED an EKG done showed no acute ST/T wave changes. Initial troponin negative, D-dimer negative. A chest x-ray showed no acute process. His potassium was low at 3.0 and glucose on BMP was elevated at 147. He was given ASA and nitro without alleviation in symptoms. He denies chest pain currently. - Exam Vitals: Temp Pulse Resp BP Pulse Ox 97.8 F 71 16 112/70 96 01/23/19 06:34 01/23/19 06:34 01/23/19 06:34 01/23/19 06:34 01/23/19 06:34 Exam: PHYSICAL EXAMINATION: GENERAL APPEARANCE: The patient is alert, oriented and in no acute distress. HEENT: Head is normocephalic. The sinuses are nontender. Pupils are equal and reactive. The nares are patent. Oropharynx clear without lesions. NECK: Supple without lymphadenopathy. HEART: Regular rate and rhythm. LUNGS: No crackles or wheezes are heard. ABDOMEN: Soft, nontender, nondistended with good bowel sounds heard. Inguinal area is normal. EXTREMITIES: Without cyanosis, clubbing or edema. NEUROLOGICAL: Gross nonfocal. SKIN: Warm and dry without any rash. - Assessment and Plan (1) Hypokalemia Current Visit: No Status: Resolved (2) Hypertension Current Visit: No Status: Acute Assessment and Plan: Resume home medications. Add Labetolol IV prn. Continue monitoring blood pressure. (3) Mood disorder Current Visit: No Status: Acute Assessment and Plan: No acute issues, resume home medications. (4) Schizophrenia Current Visit: No Status: Acute Assessment and Plan: Resume home medications. (5) Chest pain Current Visit: Yes Status: Acute Assessment and Plan: Has some descriptions concerning for ACS. D-dimer negative less likely PE. Other etiologies include GERD, musculoskelatal, other. - Negative troponin. - Echocardiogram - Nuclear stress test (6) DVT prophylaxis Current Visit: Yes Status: Acute Assessment and Plan: SQ Heparin (7) Hyperglycemia Current Visit: Yes Status: Acute Assessment and Plan: Patient has symptoms concerning for diabetes along with elevated glucose. A1c 5.9, prediabetic, diet control and lifestyle modification discussed with patient. - Time Spent with Patient Total time spent is greater than 50% in coordination of care (as documented) at patient's floor/unit and/or counseling patient: Greater than 35 minutes Plan of Care Discussed with: patient Internal Medicine: Result - Labs CBC & Chem 7: 01/22/19 13:53 01/23/19 05:04 Labs: Short CBC 01/22/19 Range/Units 13:53 WBC 11.7 H (4.3-11.1) K/mcL Hgb 12.7 L (12.9-16.9) g/dL Hct 38.5 (37.5-50.1) % Plt Count 313 (140-400) K/mcL Neutrophils # 7.6 (1.6-8.9) K/mcL BMP 01/22/19 01/23/19 13:52 05:04 Sodium 139 141 Potassium 3.0 L 3.7 Chloride 104 107 Carbon Dioxide 26 26 BUN 11 12 Creatinine 0.87 0.91 Glucose 147 H 95 Calcium 8.6 8.1 L Cardiac Enzymes 01/22/19 01/22/19 01/23/19 Range/Units 13:52 20:01 05:04 Troponin I < 0.03 < 0.03 < 0.03 (< 0.04) ng/mL - ABG Interpretation ABG results: PT/INR, D-dimer D-Dimer 475 ng/mLFEU (0-500) 01/22/19 13:52 - Impressions Impressions Chest X-Ray 01/22/19 13:44 IMPRESSION: No acute process. D/ / Nils Bailey MD / Nils Bailey MD Interpreting Provider: Nils Bailey MD Consult Discharge Plan - Plan Referrals: Yennifer Lundy, [employer] [Primary Care Provider] - (2) Hypertension Qualifiers: Hypertension type: essential hypertension (4) Schizophrenia Qualifiers: Schizophrenia type: unspecified (5) Chest pain Qualifiers: Chest pain type: unspecified Qualified Code(s): R07.9 - Chest pain, unspecified
[2019-01-23] MEDS: OXcarbazepine 150 MG TABLET PO SCH ×2 (10:19→20:20)
[2019-01-23] MEDS: amLODIPine 5 MG TABLET PO SCH (10:20)
[2019-01-23] MEDS: Metoprolol XL (24 HR) Succ 50 MG TAB.ER.24H PO SCH (10:20)
[2019-01-23] MEDS ORDERED: clonazePAM 1 MG TABLET PO ONE (21:00)
[2019-01-23] MEDS: clonazePAM 1 MG TABLET PO ONE (23:05)
[2019-01-24 04:34] LABS: Basophils # 0.1 K/mcL (0.0-0.2); Basophils % 0.5 %; Eosinophils # 0.7 K/mcL (0.0-0.6); Eosinophils % 6.3 %; Hematocrit 37.1 % (37.5-50.1); Immature Granulocytes % 0.6 % (0-4); Lymphocytes # 2.3 K/mcL (0.6-4.6); Lymphocytes % 21.2 %; Mean Corpuscular HGB Conc 32.3 g/dL (31.6-35.5); Mean Corpuscular Hemoglobin 28.6 pg (28.0-33.3); Mean Corpuscular Volume 88.5 fL (83.0-100.0); Mean Platelet Volume 9.2 fL (9.4-12.4); Monocytes # 1.1 K/mcL (0.0-1.3); Neutrophils # 6.6 K/mcL (1.6-8.9); Platelet Count 304 K/mcL (140-400); Red Blood Count 4.19 M/mcL (4.19-5.50); Red Cell Distribution Width 13.8 % (11.5-14.5); Segmented Neutrophils % 61.4 %; White Blood Count 10.7 K/mcL (4.3-11.1)
[2019-01-24 04:51] LABS: BUN/Creatinine Ratio 14 (6-26); Blood Urea Nitrogen 13 mg/dL (6-20); Calcium 8.4 mg/dL (8.6-10.3); Carbon Dioxide 27 mEq/L (23-29); Chloride 106 mEq/L (98-107); Glucose 101 mg/dL (70-105); Osmolality,Calculated 292 (280-300); Potassium 3.4 mEq/L (3.5-5.1); Sodium 141 mEq/L (136-145); eGFR For African Americans > 60 (> 60); eGFR For Non-African Americans > 60 (> 60)
[2019-01-24] MEDS: *HR* Heparin 5,000 UNIT/ML VIAL SQ SCH (06:06)
[2019-01-24] MEDS: ALPRAZolam 1 MG TABLET PO SCH ×2 (06:07→08:03)
[2019-01-24 06:28] VITALS: BP 144/98
[2019-01-24] MEDS: amLODIPine 5 MG TABLET PO SCH (08:03)
[2019-01-24] MEDS: OXcarbazepine 150 MG TABLET PO SCH (08:04)
[2019-01-24] MEDS: Metoprolol XL (24 HR) Succ 50 MG TAB.ER.24H PO SCH (08:04)
--- NOTE | 2019-01-24 13:30 | Discharge Summary ---
- NOTES TO OUTPATIENT PROVIDER Notes to Outpatient Provider: Presented with chest pain and underwent stress test which was negative for any ischemia or infarct-advised lifestyle changes continue with aspirin and monitor blood pressure and keep a log-continue with low-fat low-cholesterol diet follow-up with pulmonology for possible sleep apnea evaluation. Follow-up with cardiology as well Date of Encounter: 01/24/19 Time of Encounter: 13:25 - Discharge Diagnosis (1) Hypokalemia Priority: Primary Status: Resolved (2) Hypertension Priority: Secondary Status: Chronic Qualifiers: Hypertension type: essential hypertension Qualified Code(s): I10 - Essential (primary) hypertension (3) Mood disorder Priority: Secondary Status: Acute (4) Schizophrenia Priority: Secondary Status: Chronic Qualifiers: Schizophrenia type: unspecified Qualified Code(s): F20.9 - Schizophrenia, unspecified (5) Chest pain Priority: Primary Status: Acute Qualifiers: Chest pain type: unspecified Qualified Code(s): R07.9 - Chest pain, unspecified (6) Hyperglycemia Priority: Secondary Status: Acute Hospital course: Mr. Maria is a 49 year old male astragal history of anxiety bipolar depression and schizophrenia former smoker presented with [facility] after experiencing four-day history of substernal chest pressure with radiation to left shoulder. There were no alleviating or exacerbating factors. He was scheduled to have a stress test as an outpatient however the pain continued over the past 4 days and decided to present to the ER. EKG with no acute ST-T wave abnormalities troponins were negative 3 d-dimer is negative chest x-ray no acute process. His potassium was low and replaced. He did have a history significant for CVA in his father of an [place]. Cardiac echo with EF of 60% mild left ventricular diastolic dysfunction normal right ventricular structure and function no significant Biba dysfunction no evidence of pulmonary hypertension. He did undergo a 2-D cardiac stress test which did reveal perfusion imaging negative for ischemia there was a medium-sized fixed perfusion defect moderate in intensity in the apical inferior and mid inferolateral segments consistent with prior infarct. Follow-up still stress EKG was nondiagnostic for ischemia due to baseline nonspecific ST-T wave changes. Gait EF is 45% with LV is dilated. Did discuss these results with Dr. Adams -advised with medical management and to follow-up with cardiology as outpatient if patient is not expressing any chest pain this time she is not experiencing any chest pain throughout today. Discussed findings with the patient advised lifestyle changes including blood pressure control glucose control weight loss. Patient is to follow-up with primary care provider he is also to be evaluated by neurology as outpatient for sleep apnea evaluation, he will follow-up with cardiology as well. Patient verbalizes understanding currently he is hemodynamically stable with no chest pain this time is ready for discharge. Discharge discussed with: patient - Time Spent with Patient Total time spent providing and/or coordinating discharge services: - Discharge Medications Prescriptions: New Aspirin 81 mg PO DAILY 30 Days #30 tab.chew Continued Lurasidone HCl [Latuda] 40 mg PO HS Alprazolam [Xanax] 2 mg PO TID Omeprazole [PriLOSEC] 20 mg PO DAILY clonazePAM [Klonopin] 1 mg PO DAILY PRN PRN Reason: Anxiety Albuterol Sulfate [Albuterol Sulfate Hfa] 2 puff IH Q4-6H PRN PRN Reason: Shortness Of Breath Amlodipine Besylate 10 mg PO DAILY Enalapril Maleate [Vasotec] 10 mg PO DAILY Losartan Potassium 100 mg PO DAILY Metoprolol Succinate 200 mg PO DAILY No Action clonazePAM [Klonopin] 2 mg PO HS ALPRAZolam [Xanax 1 MG Tablet] 1 mg PO 0600 OXcarbazepine [Oxcarbazepine] 600 mg PO BID Home Medications: Alprazolam [Xanax] 2 mg PO TID 10/05/16 [History] Lurasidone HCl [Latuda] 40 mg PO HS 10/05/16 [History] clonazePAM [Klonopin] 2 mg PO HS 10/05/16 [History] ALPRAZolam [Xanax 1 MG Tablet] 1 mg PO 0600 01/22/19 [History] Albuterol Sulfate [Albuterol Sulfate Hfa] 2 puff IH Q4-6H PRN 01/22/19 [History] Amlodipine Besylate 10 mg PO DAILY 01/22/19 [History] Enalapril Maleate [Vasotec] 10 mg PO DAILY 01/22/19 [History] Losartan Potassium 100 mg PO DAILY 01/22/19 [History] Metoprolol Succinate 200 mg PO DAILY 01/22/19 [History] OXcarbazepine [Oxcarbazepine] 600 mg PO BID 01/22/19 [History] Omeprazole [PriLOSEC] 20 mg PO DAILY 01/22/19 [History] clonazePAM [Klonopin] 1 mg PO DAILY PRN 01/22/19 [History] Aspirin 81 mg PO DAILY 30 Days #30 tab.chew 01/24/19 [Rx] Allergies/Adverse Reactions: Allergy/AdvReac Type Severity Reaction Status Date / Time Penicillins Allergy Severe Difficulty Verified 01/22/19 18:25 Breathing lorazepam [From Ativan] AdvReac Hallucinati Verified 01/22/19 18:25 ng Date of admission: 01/22/19 16:08 Primary care physician: Yennifer Lundy CNP Discharging clinician: Anh Quintero Anticipated date of discharge: 01/24/19 - Constitutional Vitals: Temp Pulse Resp BP Pulse Ox 97.6 F 76 17 144/98 96 01/24/19 06:26 01/24/19 06:26 01/24/19 06:26 01/24/19 06:26 01/24/19 06:26 General appearance: Present: A&O X 3, pleasant, no acute distress, answers questions appropriately Exam: Skin: Free of rash and discoloration. Eyes: Sclera is white. There is no discharge from eyes. ENMT: Oral/pharyngeal mucosa is normal in appearance. There is no discharge from nose or ears. Respiratory: Normal breath sounds with no crackles and wheezes bilaterally. CV: Heart is regular with no gallop or murmur. GI: Abdomen is flat and soft with no palpable mass or visceromegaly. : There is no tenderness in patient's flanks bilaterally. Neuro exam: He has good strength in upper and lower extremities. He has normal eye movements. Psychiatric: He has normal affect. His thought process is appropriate to the situation. - Patient Status Disposition: Home, Self-Care Condition: Good Functional capacity at discharge: independent ambulation Overall status at discharge: patient is back to baseline - Discharge Instructions Instructions: Chest Pain (DC) Follow Up With: [facility] [Provider Group] (An appointment has been requested. The office will contact you at home to schedule an appointment. Thank you. ) Yennifer Lundy CNP [Primary Care Provider] - 01/31/19 8:15 am - Diet and Activity Activity: increase activity as tolerated Diet: diabetic diet, low fat, low cholesterol, low salt diet
== END 2019-01-24 14:30 | disposition home or self-care (01) ==
LOC: EMEROOARM 13:26 → 3BNU 13:26
PROVIDERS: ADMIT Student in an Organized Health Care Education/Training Program; ATTEND Student in an Organized Health Care Education/Training Program